=== PATIENT | male | born 1955 | race Caucasian/White ===

== ENCOUNTER → 2024-05-21 07:08 | Outpatient (REF) | payer MEDICARE, OTHER, SELFPAY | LOC: RAD 07:08 | PROVIDERS: ATTENDING PHYSICIAN Surgery Vascular Surgery; FAMILY PHYSICIAN Internal Medicine | DX: I71.40 Abdominal aortic aneurysm, without rupture, unspecified (principal) | CPT/HCPCS: 74174; Q9967 ==